=== PATIENT | female | born 2000 | race Two or more races ===

== ENCOUNTER 2021-05-08 17:09 | Inpatient (IN) ==
--- NOTE | 2021-05-08 17:27 | Emergency Department Note ---
Impression & Plan Depression with suicidal ideation, Hypokalemia, Headache ED Provider Note NAME: REGINA CLEVLEAND AGE: 20 SEX: F : 2000 ARRIVES VIA: [employer] INFORMANT: Patient, ED PROVIDER(S): Enrique Bryant MD Chief Complaint: Mental wellness concern HPI: Patient does present due to concern for mental wellness with thoughts of active SI with plan to put a bag over her head to suffocate herself or potentially disturb her self by not eating. Patient is a [employer] student but states that she feels behind even though she just recently started the semester. The patient does have a prior history of trying to put a bag over her head to harm herself last June. Patient states that her sleep sometimes is too much or too little. Her appetite has been poor. Patient has any access to guns or weapons. Patient has any HI or AVH. Patient is vaccinated for COVID-19 denies any alcohol, tobacco, or drug use. The patient did follow-up with a therapist in [place] locally approximately 3 times and was recommended for additional follow-up but this became too expensive and thus the patient did not continue any treatment. The patient does not take any medications. ROS: See HPI for pertinent positives and negatives. A total of 10 systems were reviewed and otherwise negative. Past medical history: See below Surgical history: See below Social history: See below Physical Exam: GENERAL: NAD, wearing a mask, non-toxic. EYE EXAM: Normal conjunctiva. PERRL, no anisocoria and EOM's grossly intact w/o pain. NECK: Supple, no nuchal rigidity, no adenopathy, non-tender. No signs of meningismus. LUNGS: Clear to auscultation. Normal chest wall mechanics. HEART: NSR, no MRG. ABDOMEN: Abdomen soft, non-tender, normo-active bowel sounds, no masses, no rebound or guarding. BACK: No CVA TTP. SKIN: No rashes and no bruising. UPPER EXTREMITIES: Upper extremities are grossly normal. LOWER EXTREMITIES: Grossly normal, no edema. NEURO EXAM: A&O x3, cranial nerves II-XII grossly intact, normal speech, moves all 4 extremities on command w/o issue. Psych: Positive SI, negative HI or AVH. Differential diagnoses: Mood disorder, infection, hypoglycemia, electrolyte abnormalities, cardiac sources, intracerebral event, toxicologic, trauma, neurologic, as well as other pathologies. Course: Patient was seen and evaluated the bedside. Full history physical exam was performed. MDM: Patient was seen due to concern for mental illness. Blood work was obtained and the patient was deemed medically cleared seen and evaluated by the psych heel caser. Patient was admitted as a voluntary 2 0 1-3 S. The patient did receive some Tylenol for headache. The patient was not meningitic or encephalopathic. Past Med/Surg History Medical History (Updated 05/08/21 @ 21:59 by Enrique Bryant MD) Depression Suicidal ideation Surgical History (Updated 05/08/21 @ 18:06 by Enrique Bryant MD) No pertinent past surgical history Social History (Updated 05/08/21 @ 18:06 by Enrique Bryant MD) Smoking Status: Never smoker Hx Alcohol Use: No Hx Substance Use: No current occupational status: student current occupation: [employer] student from [place] Feels Safe at Home: Yes Immunizations: Vaccinated for COVID-19 Allergies Allergies Allergy/AdvReac Type Severity Reaction Status Date / Time No Known Allergies Allergy Unverified 05/08/21 19:17 Home Meds Home Medications Medication Instructions Recorded Confirmed No Known Home Medications 05/08/21 05/08/21 Results & Data (ED) Vital Signs Vital Signs - 24 hr 05/08/21 17:10 05/08/21 19:28 Temperature 37.0 C Temperature Source Oral Pulse Rate 100 H Pulse Rate [Right Finger] 70 Pulse Rhythm Regular Pulse Rhythm [Right Finger] Regular Pulse Strength [Right Finger] Normal Respiratory Rate 20 18 Respiratory Effort / Characteristics Non-Labored Respiratory Depth Normal Respiratory Pattern Regular Blood Pressure 98/62 L Blood Pressure [Left Arm] 121/80 Blood Pressure Mean 74 Blood Pressure Mean [Left Arm] 93 Blood Pressure Position [Left Arm] Sitting Pulse Oximetry 99 99 Oxygen Delivery Method Room Air Sepsis Recent Fever Within 48 Hours No Sepsis New/Unexplained Change in Mental Status No Sepsis Action Taken by Nursing No Action Required Home Medications Current Medication List: was personally reviewed by me Laboratory Data Attestation: I reviewed the patient's lab results. Result diagrams: 05/08/21 17:44 05/08/21 17:44 Lab Results 05/08/21 05/08/21 05/08/21 Range/Units 17:44 17:44 17:44 WBC 8.33 (4.8-10.8) K/uL RBC 4.41 (4.2-5.4) M/uL Hgb 12.8 (12.0-16.0) g/dL Hct 39.0 (37-47) % MCV 88.4 (80-100) fL MCH 29.0 (25-34) pg MCHC 32.8 (32-36) g/dL RDW Std Deviation 44.0 (36.4-46.3) fL RDW Coeff of Tereza 13.5 (11.5-14.5) % Plt Count 326 (130-400) K/uL MPV 10.3 (7.4-10.4) fL Immature Gran % (Auto) 0.2 % Neut % (Auto) 68.7 % Lymph % (Auto) 24.7 % [place] % (Auto) 4.2 % Eos % (Auto) 1.7 % Baso % (Auto) 0.5 % Neut # (Auto) 5.72 (1.4-6.5) K/uL Lymph # (Auto) 2.06 (1.2-3.4) K/uL [place] # (Auto) 0.35 (0.11-0.59) K/uL Eos # (Auto) 0.14 (0-0.5) K/uL Baso # (Auto) 0.04 (0-0.2) K/uL Immature Gran # (Auto) 0.02 (0.00-0.02) K/uL Sodium 139 (136-145) mmol/L Potassium 3.4 L (3.5-5.1) mmol/L Chloride 106 (98-107) mmol/L Carbon Dioxide 26 (21-32) mmol/L Anion Gap 7 (3-11) BUN 9 (6-23) mg/dl Creatinine 0.69 (0.6-1.2) mg/dl Est Cr Clr Drug Dosing Not Reportable Est GFR ( Amer) 145.2 ml/min Est GFR (Non-Af Amer) 125.3 ml/min BUN/Creatinine Ratio 13.0 (10-20) Glucose 93 (70-99(Fasting)) mg/dl Calcium 9.8 (8.5-10.1) mg/dl Total Bilirubin 0.4 (0.2-1.0) mg/dl AST 14 (13-39) U/L ALT 13 (7-52) U/L Alkaline Phosphatase 55 (34-104) U/L Total Protein 7.4 (6.0-8.3) gm/dl Albumin 4.6 (3.4-5.0) gm/dl Globulin 2.8 (2.5-4.0) gm/dl Albumin/Globulin Ratio 1.6 (0.9-2) TSH 1.655 (0.300-4.500) uIu/ml Urine Color Urine Appearance (Clear) Urine pH (4.5-7.5) Ur Specific [place] (1.000-1.030) Urine Protein (Negative) Urine Glucose (UA) (Negative) Urine Ketones (Negative) Urine Blood (Negative) Urine Nitrite (Negative) Urine Bilirubin (Negative) Urine Urobilinogen (Negative) Ur Leukocyte Esterase (Negative) Urine WBC (Auto) (0-5) /hpf Urine RBC (Auto) (0-4) /hpf U Hyaline Cast (Auto) (0-5) /lpf U Epithel Cells (Auto) (0-5) /lpf Urine Bacteria (Auto) (Negative) Urine Test (Negative) Salicylates (3.0-30) mg/dl Urine Opiates Screen (Neg) Ur Methadone, Qual (Neg) Acetaminophen (10-30) ug/ml Urine Barbiturates (Neg) Ur Phencyclidine (PCP) (Neg) U Amphetamin/Meth Scrn (Neg) MDMA (Ecstasy) Screen (Neg) U Benzodiazepines Scrn (Neg) Ur Cocaine Metabolite (Neg) U Marijuana (THC) Screen (Neg) Ethyl Alcohol mg/dL (<10.0) mg/dl SARS-CoV-2, RNA, NAAT (NEGATIVE) 05/08/21 05/08/21 05/08/21 Range/Units 17:44 17:44 19:00 WBC (4.8-10.8) K/uL RBC (4.2-5.4) M/uL Hgb (12.0-16.0) g/dL Hct (37-47) % MCV (80-100) fL MCH (25-34) pg MCHC (32-36) g/dL RDW Std Deviation (36.4-46.3) fL RDW Coeff of Tereza (11.5-14.5) % Plt Count (130-400) K/uL MPV (7.4-10.4) fL Immature Gran % (Auto) % Neut % (Auto) % Lymph % (Auto) % [place] % (Auto) % Eos % (Auto) % Baso % (Auto) % Neut # (Auto) (1.4-6.5) K/uL Lymph # (Auto) (1.2-3.4) K/uL [place] # (Auto) (0.11-0.59) K/uL Eos # (Auto) (0-0.5) K/uL Baso # (Auto) (0-0.2) K/uL Immature Gran # (Auto) (0.00-0.02) K/uL Sodium (136-145) mmol/L Potassium (3.5-5.1) mmol/L Chloride (98-107) mmol/L Carbon Dioxide (21-32) mmol/L Anion Gap (3-11) BUN (6-23) mg/dl Creatinine (0.6-1.2) mg/dl Est Cr Clr Drug Dosing Est GFR ( Amer) ml/min Est GFR (Non-Af Amer) ml/min BUN/Creatinine Ratio (10-20) Glucose (70-99(Fasting)) mg/dl Calcium (8.5-10.1) mg/dl Total Bilirubin (0.2-1.0) mg/dl AST (13-39) U/L ALT (7-52) U/L Alkaline Phosphatase (34-104) U/L Total Protein (6.0-8.3) gm/dl Albumin (3.4-5.0) gm/dl Globulin (2.5-4.0) gm/dl Albumin/Globulin Ratio (0.9-2) TSH (0.300-4.500) uIu/ml Urine Color Yellow Urine Appearance Clear (Clear) Urine pH 6.0 (4.5-7.5) Ur Specific [place] 1.006 (1.000-1.030) Urine Protein Negative (Negative) Urine Glucose (UA) Negative (Negative) Urine Ketones Negative (Negative) Urine Blood 1+ H (Negative) Urine Nitrite Negative (Negative) Urine Bilirubin Negative (Negative) Urine Urobilinogen Negative (Negative) Ur Leukocyte Esterase Negative (Negative) Urine WBC (Auto) 1-5 (0-5) /hpf Urine RBC (Auto) 0-4 (0-4) /hpf U Hyaline Cast (Auto) 0 (0-5) /lpf U Epithel Cells (Auto) 20-30 H (0-5) /lpf Urine Bacteria (Auto) Negative (Negative) Urine Test (Negative) Salicylates < 3.0 L (3.0-30) mg/dl Urine Opiates Screen (Neg) Ur Methadone, Qual (Neg) Acetaminophen < 3 L (10-30) ug/ml Urine Barbiturates (Neg) Ur Phencyclidine (PCP) (Neg) U Amphetamin/Meth Scrn (Neg) MDMA (Ecstasy) Screen (Neg) U Benzodiazepines Scrn (Neg) Ur Cocaine Metabolite (Neg) U Marijuana (THC) Screen (Neg) Ethyl Alcohol mg/dL < 10.0 (<10.0) mg/dl SARS-CoV-2, RNA, NAAT (NEGATIVE) 05/08/21 05/08/21 05/08/21 Range/Units 19:00 19:00 19:25 WBC (4.8-10.8) K/uL RBC (4.2-5.4) M/uL Hgb (12.0-16.0) g/dL Hct (37-47) % MCV (80-100) fL MCH (25-34) pg MCHC (32-36) g/dL RDW Std Deviation (36.4-46.3) fL RDW Coeff of Tereza (11.5-14.5) % Plt Count (130-400) K/uL MPV (7.4-10.4) fL Immature Gran % (Auto) % Neut % (Auto) % Lymph % (Auto) % [place] % (Auto) % Eos % (Auto) % Baso % (Auto) % Neut # (Auto) (1.4-6.5) K/uL Lymph # (Auto) (1.2-3.4) K/uL [place] # (Auto) (0.11-0.59) K/uL Eos # (Auto) (0-0.5) K/uL Baso # (Auto) (0-0.2) K/uL Immature Gran # (Auto) (0.00-0.02) K/uL Sodium (136-145) mmol/L Potassium (3.5-5.1) mmol/L Chloride (98-107) mmol/L Carbon Dioxide (21-32) mmol/L Anion Gap (3-11) BUN (6-23) mg/dl Creatinine (0.6-1.2) mg/dl Est Cr Clr Drug Dosing Est GFR ( Amer) ml/min Est GFR (Non-Af Amer) ml/min BUN/Creatinine Ratio (10-20) Glucose (70-99(Fasting)) mg/dl Calcium (8.5-10.1) mg/dl Total Bilirubin (0.2-1.0) mg/dl AST (13-39) U/L ALT (7-52) U/L Alkaline Phosphatase (34-104) U/L Total Protein (6.0-8.3) gm/dl Albumin (3.4-5.0) gm/dl Globulin (2.5-4.0) gm/dl Albumin/Globulin Ratio (0.9-2) TSH (0.300-4.500) uIu/ml Urine Color Urine Appearance (Clear) Urine pH (4.5-7.5) Ur Specific [place] (1.000-1.030) Urine Protein (Negative) Urine Glucose (UA) (Negative) Urine Ketones (Negative) Urine Blood (Negative) Urine Nitrite (Negative) Urine Bilirubin (Negative) Urine Urobilinogen (Negative) Ur Leukocyte Esterase (Negative) Urine WBC (Auto) (0-5) /hpf Urine RBC (Auto) (0-4) /hpf U Hyaline Cast (Auto) (0-5) /lpf U Epithel Cells (Auto) (0-5) /lpf Urine Bacteria (Auto) (Negative) Urine Test Negative (Negative) Salicylates (3.0-30) mg/dl Urine Opiates Screen Neg (Neg) Ur Methadone, Qual Neg (Neg) Acetaminophen (10-30) ug/ml Urine Barbiturates Neg (Neg) Ur Phencyclidine (PCP) Neg (Neg) U Amphetamin/Meth Scrn Neg (Neg) MDMA (Ecstasy) Screen Neg (Neg) U Benzodiazepines Scrn Neg (Neg) Ur Cocaine Metabolite Neg (Neg) U Marijuana (THC) Screen Neg (Neg) Ethyl Alcohol mg/dL (<10.0) mg/dl SARS-CoV-2, RNA, NAAT NEGATIVE (NEGATIVE) Administered Medications Discontinued Medications Acetaminophen (Acetaminophen 500 Mg Tab) 1,000 mg PO NOW STA Stop: 05/08/21 20:12 Last Admin: 05/08/21 20:23 Dose: 1,000 mg Documented by: [id number] Discharge Plan Visit Data Chief Complaint: Mental Health Evaluation Stated Complaint: [facility] ED Provider: Enrique Bryant Discharge Problem: Depression with suicidal ideation, Hypokalemia, Headache Patient Disposition: Admitted As Inpatient Discharge Instructions Interventions: ED Discharge Assessment Last Done: 05/08/21 21:29 Discharge Problem: Headache Qualifiers: Headache type: unspecified Headache chronicity pattern: acute headache Intractability: not intractable Qualified Code(s): R51.9 - Headache, unspecified
[2021-05-08 18:27] LABS: Basophils # (auto) 0.04 K/uL (0-0.2); Basophils % (auto) 0.5 %; Eosinophils # (auto) 0.14 K/uL (0-0.5); Eosinophils % (auto) 1.7 %; Hemoglobin 12.8 g/dL (12.0-16.0); Immature Granulocytes # (auto) 0.02 K/uL (0.00-0.02); Immature Granulocytes % (auto) 0.2 %; Lymphocytes # (auto) 2.06 K/uL (1.2-3.4); Lymphocytes % (auto) 24.7 %; Mean Corpuscular Hgb Conc 32.8 g/dL (32-36); Mean Corpuscular Volume 88.4 fL (80-100); Mean Platelet Volume 10.3 fL (7.4-10.4); Monocytes # (auto) 0.35 K/uL (0.11-0.59); Monocytes % (auto) 4.2 %; Neutrophils # (auto) 5.72 K/uL (1.4-6.5); Neutrophils % (auto) 68.7 %; Platelet Count 326 K/uL (130-400); RDW Coefficient of Variation 13.5 % (11.5-14.5); Red Blood Count 4.41 M/uL (4.2-5.4); White Blood Count 8.33 K/uL (4.8-10.8)
[2021-05-08 18:43] LABS: Alanine Aminotransferase 13 U/L (7-52); Albumin Globulin Ratio 1.6 (0.9-2); Albumin Level 4.6 gm/dl (3.4-5.0); Alkaline Phosphatase 55 U/L (34-104); Anion Gap 7 (3-11); Aspartate Aminotransferase 14 U/L (13-39); Bilirubin,Total 0.4 mg/dl (0.2-1.0); Blood Urea Nitrogen 9 mg/dl (6-23); Calcium 9.8 mg/dl (8.5-10.1); Carbon Dioxide 26 mmol/L (21-32); Chloride 106 mmol/L (98-107); Est GFR (African American) 145.2 ml/min; Est GFR (Non-African American) 125.3 ml/min; Globulin 2.8 gm/dl (2.5-4.0); Glucose 93 mg/dl (70-99(Fasting)); Potassium 3.4 mmol/L (3.5-5.1); Sodium 139 mmol/L (136-145); Total Protein 7.4 gm/dl (6.0-8.3)
[2021-05-08 18:44] LABS: Acetaminophen < 3 ug/ml (10-30); Salicylate < 3.0 mg/dl (3.0-30)
[2021-05-08 19:15] LABS: Pregnancy Test, Urine Negative (Negative)
[2021-05-08 19:36] LABS: Appearance Urine Clear (Clear); Bacteria Urine Automated Negative (Negative); Bilirubin Urine Negative (Negative); Blood Urine 1+ (Negative); Cast Urine Automated 0 /lpf (0-5); Color Urine Yellow; Epithelial Cell Urine Auto 20-30 /lpf (0-5); Glucose Urine UA Negative (Negative); Ketones Urine Negative (Negative); Leukocyte Esterase Urine Negative (Negative); Nitrite Urine Negative (Negative); Protein Urine Negative (Negative); RBC Urine Automated 0-4 /hpf (0-4); Specific Gravity Urine 1.006 (1.000-1.030); Urobilinogen Urine Negative (Negative)
[2021-05-08 19:58] LABS: Amphetamines+Metham, Urine Neg (Neg); Barbiturates, Urine Neg (Neg); Benzodiazepine, Urine Neg (Neg); Cocaine, Urine Neg (Neg); MDMA (Ecstacy), Urine Neg (Neg); Methadone, Urine Neg (Neg); Opiate, Urine Neg (Neg); Phencyclidine, Urine Neg (Neg)
[2021-05-08] MEDS ORDERED: ACETAMINOPHEN 500 MG TAB PO STA (20:11)
[2021-05-08] MEDS ORDERED: ACETAMINOPHEN 325 MG TAB PO PRN (20:59)
[2021-05-08] MEDS ORDERED: SODIUM CHLORIDE 0.65% NA SOLN 45 ML (OCEAN) PRN (20:59)
[2021-05-08] MEDS ORDERED: ALUMINUM/MAGNESIUM SUSP 30 ML UDC PO PRN (20:59)
[2021-05-08] MEDS ORDERED: hydrOXYzine HCl 25 MG TAB PO PRN ×2 (20:59)
[2021-05-08] MEDS ORDERED: MAGNESIUM HYDROXIDE SUSP 30 ML UDC PO PRN (20:59)
[2021-05-08] MEDS ORDERED: BISMUTH SUBSALICYLATE LIQD 236 ML PO PRN (20:59)
[2021-05-08] MEDS ORDERED: ONDANSETRON 4 MG OD TAB PO PRN (22:50)
[2021-05-09] MEDS: ESCITALOPRAM OXALATE 10 MG TAB PO SCH (10:29)
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
[2021-05-10] MEDS: ESCITALOPRAM OXALATE 10 MG TAB PO SCH (08:48)
--- NOTE | 2021-05-10 11:31 | Psychiatric Progress Note ---
Date of Service May 10, 2021 Impression / Recommendations Impression Regina is a 20 yo female with 2 prior suicide attempts presents with worsening mood during the winter and multiple vegetative symptoms of depression as well as recurrent SI with plan. She has a good relationship with her roommate but otherwise has very little support. 05/10/20: improving, some medication side effects (1) Depression with suicidal ideation: 05/10/21: continue current meds and treatment plan 05/09/21: The patient was admitted to the [facility] ([facility]) on q15 min checks (behavioral with suicide precautions) for safety. The patient will participate in group, recreational, and milieu therapies and will be offered additional individual and family sessions as clinically appropriate. Risks/benefits/alternatives reviewed re: antidepressants for the treatment of depression and/or anxiety. Discussion included but was not limited to FDA warnings re: suicidality in adolescents and young adults. The patient agreed to a trial of Lexapro. Inventory Assets Strengths: intelligent, self-aware Needs: increase support system, cope without self harm. Risk Factors Assessment Male: No : No Do You Have Access To A Gun?: No Substance Use Disorders: No Previous Attempt: Yes Protective Factors Assessment Employed: No Stable Relationships: Yes Supportive Family: No Interval History Identifying Information REGINA CLEVELAND is a 20-year-old [facility] F from [facility], has a history of prior suicide attempt , and was admitted on 05/08/21 20:59 on a 201 voluntary commitment for SI. Chief Complaint "a little foggy today". Review of Systems Sleep Information Total Hours of Sleep: 6 Sleep Comments: pt on q-15 minute checks Meal Information Percent Meal Consumed - Breakfast: 25 Percent Meal Consumed - Lunch: 50 Percent Meal Consumed - Dinner: 75 Nutrition Comment: see note Subjective Subjective Patient was seen & assessed and interval progress reviewed with nursing and social work. The patient reports feeling a little tired this am, minor stomach upset which may be related to medication. She does not feel severe enough that she wants to shift to bedtime at this time. Physical Exam Psychiatric Orientation: alert and oriented x 3 Apperance: appropriately dressed and appropriately groomed Eye Contact: good eye contact Motor Behavior: no abnormal motor movements Speech: normal rate/rhythm/volume of speech Affect: + depressed affect Mood: + depressed mood Thought Process: goal directed thought process Thought Content: reality based without delusions Suicidal Thoughts: denies suicidal thoughts and denies suicidal plan Homicidal Thoughts: denies homicidal thoughts Hallucinations: no auditory hallucinations and no visual hallucinations Cognition: attention grossly intact and language grossly intact Estimated Intelligence: consistent with education level Vital Signs (Past 24 Hours) Last Vital Signs Temp 36.5 C 05/10/21 06:34 Pulse 78 05/10/21 06:36 Resp 16 05/10/21 06:34 BP 97/61 L 05/10/21 06:36 Pulse Ox 99 05/08/21 21:43 Results & Data ([facility]) Current Inpatient Medications Current Inpatient Medications: Current Inpatient Medications Acetaminophen (Acetaminophen 325 Mg Tab) 650 mg PO Q4H PRN PRN Reason: Headache or Minor Fever Stop: 06/07/21 20:58 Al Hydrox/Mg Hydrox/Simethicone (Aluminum/Magnesium Susp 30 Ml Udc) 30 ml PO Q4H PRN PRN Reason: GI Upset Stop: 06/07/21 20:58 Bismuth Subsalicylate (Bismuth Subsalicylate Liqd 236 Ml) 15 ml PO PRN PRN PRN Reason: Loose Stool Stop: 06/07/21 20:58 Escitalopram Oxalate (Escitalopram Oxalate 10 Mg Tab) 5 mg PO QAM ALLEN Stop: 06/08/21 09:44 Last Admin: 05/10/21 08:48 Dose: 5 mg Documented by: Hydroxyzine HCl (Hydroxyzine Hcl 25 Mg Tab) 50 mg PO HSZ PRN PRN Reason: Insomnia Stop: 06/07/21 20:58 Hydroxyzine HCl (Hydroxyzine Hcl 25 Mg Tab) 25 mg PO Q4H PRN PRN Reason: Anxiety Stop: 06/07/21 20:58 Magnesium Hydroxide (Magnesium Hydroxide Susp 30 Ml Udc) 30 ml PO DAILY PRN PRN Reason: Constipation Stop: 06/07/21 20:58 Ondansetron HCl (Ondansetron 4 Mg Od Tab) 4 mg PO Q6H PRN PRN Reason: Nausea Stop: 06/07/21 22:49 Last Admin: 05/08/21 23:10 Dose: 4 mg Documented by: Sodium Chloride (Sodium Chloride 0.65% Na Soln 45 Ml ([place])) 1 - 2 sprays NA PRN PRN PRN Reason: Nasal Dryness/Congestion Stop: 06/07/21 20:58 Mental Health & Subst Abuse Tx Therapist Name of Therapist: None Body Corporate Manager Name of Body Corporate Manager: None Post Discharge Appointments Primary Care Physician Name Of Family Doctor: VLADIMIR
[2021-05-11] MEDS: ESCITALOPRAM OXALATE 10 MG TAB PO SCH (08:37)
--- NOTE | 2021-05-11 09:46 | Psychiatric Progress Note ---
Date of Service May 11, 2021 Impression / Recommendations Impression Regina is a 20 yo female with 2 prior suicide attempts presents with worsening mood during the winter and multiple vegetative symptoms of depression as well as recurrent SI with plan. She has a good relationship with her roommate but otherwise has very little support. 05/11/21: improving (1) Depression with suicidal ideation: 05/11/21: safety and aftercare planning 05/10/21: continue current meds and treatment plan 05/09/21: The patient was admitted to the [facility] ([facility] mental health unit) on q15 min checks (behavioral with suicide precautions) for safety. The patient will participate in group, recreational, and milieu therapies and will be offered additional individual and family sessions as clinically appropriate. Risks/benefits/alternatives reviewed re: antidepressants for the treatment of depression and/or anxiety. Discussion included but was not limited to FDA warnings re: suicidality in adolescents and young adults. The patient agreed to a trial of Lexapro. Inventory Assets Strengths: intelligent, self-aware Needs: increase support system, cope without self harm. Risk Factors Assessment Male: No : No Do You Have Access To A Gun?: No Substance Use Disorders: No Previous Attempt: Yes Protective Factors Assessment Employed: No Stable Relationships: Yes Supportive Family: No Interval History Identifying Information REGINA CLEVELAND is a 20-year-old [facility] F from [facility], has a history of prior suicide attempt, and was admitted on 05/08/21 20:59 on a 201 voluntary commitment for SI. Chief Complaint "I don't feel foggy today, I did have some intrussive thoughts overnight" Review of Systems Sleep Information Total Hours of Sleep: 6.5 Sleep Comments: pt on q-15 minute checks Meal Information Percent Meal Consumed - Breakfast: 20 Percent Meal Consumed - Lunch: 50 Percent Meal Consumed - Dinner: 100 Nutrition Comment: see note Subjective Subjective Patient was seen & assessed and interval progress reviewed with treatment team. Remains cooperative with unit routine and participates well in group, rates mood as improving, no physical complaints. Denies she is suicidal but woke up briefly overnight with "what if" I or jumped type thoughts. She was able to redirect them. Physical Exam Psychiatric Orientation: alert and oriented x 3 Apperance: appropriately dressed and appropriately groomed Eye Contact: good eye contact Motor Behavior: no abnormal motor movements Speech: normal rate/rhythm/volume of speech Affect: + depressed affect Mood: + depressed mood Thought Process: goal directed thought process Thought Content: reality based without delusions Suicidal Thoughts: denies suicidal thoughts, denies suicidal plan and denies suicidal intent Homicidal Thoughts: denies homicidal thoughts Hallucinations: no auditory hallucinations and no visual hallucinations Cognition: attention grossly intact and language grossly intact Vital Signs (Past 24 Hours) Last Vital Signs Temp 36.9 C 05/11/21 06:31 Pulse 75 05/11/21 06:32 Resp 16 05/11/21 06:31 BP 95/64 L 05/11/21 06:32 Pulse Ox 99 05/08/21 21:43 Results & Data ([facility]) Current Inpatient Medications Current Inpatient Medications: Current Inpatient Medications Acetaminophen (Acetaminophen 325 Mg Tab) 650 mg PO Q4H PRN PRN Reason: Headache or Minor Fever Stop: 06/07/21 20:58 Al Hydrox/Mg Hydrox/Simethicone (Aluminum/Magnesium Susp 30 Ml Udc) 30 ml PO Q4H PRN PRN Reason: GI Upset Stop: 06/07/21 20:58 Bismuth Subsalicylate (Bismuth Subsalicylate Liqd 236 Ml) 15 ml PO PRN PRN PRN Reason: Loose Stool Stop: 06/07/21 20:58 Escitalopram Oxalate (Escitalopram Oxalate 10 Mg Tab) 5 mg PO QAM ALLEN Stop: 06/08/21 09:44 Last Admin: 05/11/21 08:37 Dose: 5 mg Documented by: Hydroxyzine HCl (Hydroxyzine Hcl 25 Mg Tab) 50 mg PO HSZ PRN PRN Reason: Insomnia Stop: 06/07/21 20:58 Hydroxyzine HCl (Hydroxyzine Hcl 25 Mg Tab) 25 mg PO Q4H PRN PRN Reason: Anxiety Stop: 06/07/21 20:58 Magnesium Hydroxide (Magnesium Hydroxide Susp 30 Ml Udc) 30 ml PO DAILY PRN PRN Reason: Constipation Stop: 06/07/21 20:58 Ondansetron HCl (Ondansetron 4 Mg Od Tab) 4 mg PO Q6H PRN PRN Reason: Nausea Stop: 06/07/21 22:49 Last Admin: 05/08/21 23:10 Dose: 4 mg Documented by: Sodium Chloride (Sodium Chloride 0.65% Na Soln 45 Ml ([place])) 1 - 2 sprays NA PRN PRN PRN Reason: Nasal Dryness/Congestion Stop: 06/07/21 20:58 Mental Health & Subst Abuse Tx Therapist Name of Therapist: None Sound Technician Supervisor Name of Sound Technician Supervisor: None Post Discharge Appointments Primary Care Physician Name Of Family Doctor: [facility]
[2021-05-12] MEDS: ESCITALOPRAM OXALATE 10 MG TAB PO SCH (08:29)
--- NOTE | 2021-05-12 10:13 | Discharge Summary ---
Date of Service May 12, 2021 History of Present Illness The patient notes a long history of depression, generally "hid" from grandparents who raised her and aunts as "culturally they just don't get it." Negative self concept includes not feeling comfortable with her weight but denies restricting or other ED symptoms. She did vomit last pm after small amount of food in the ED but denies inentional and denies N now. States that she contacted [facility] as feeling rather guilty after a friend's (did not e laborate) though she clarified nothing was "my fault". She feels that her mood (energia, amotivation) is worse over the winter and recalls sleeping much of break. She never received treatment for her prior suicide attempts which occured 6 months-1 year ago (now states 1 year as was break 2019). She took an overdose of antibiotics with an attempt to harm herself as well as a prior attempt of suffocation by plastic bag. She denied periods of persistently elevated or irritable mood but will have periods of 1 hr-2 days where she talks more and doesn't need much sleep and will even clean her room in the middle of the night. Her friends joked that she was on "crack". She denies using substances but will "get like that if drinks energy drinks". She reports that her classes are harder this semester and she is falling behind. She is still thinking about what she wants to study as didn't like criminology. Physical Exam Psychiatric See admission H&P and DOD assessment. Vital Signs (Past 24 Hours) Last Vital Signs Temp 36.5 C 05/12/21 06:41 Pulse 74 05/12/21 06:41 Resp 16 05/12/21 06:41 BP 106/66 05/12/21 06:41 Pulse Ox 99 05/08/21 21:43 Principal Diagnosis major depressive disorder Psychiatric Data See daily stay summary. In short, safety was maintained and the patient was cooperative with care. Medication changes included a trial of Lexapro and they tolerated this well. She declined family involvement in her stay but did have a support person session with her roommate which went well. A safety plan was completed prior to discharge. Day of Discharge Assessment Today the patient voices readiness for discharge. They note improvement in mood and deny thoughts to harm self or others. Thoughts remain organized and they are improved from admission. There is no evidence of psychosis. They agree to take mediations as prescribed and keep follow-up appointments. They are stable for discharge to outpatient level of care. She will have follow up for medication management and likely titration of Lexapro at [facility] and has been referred to Nataliia Pool for therapy, confirmation of an appointment is anticipated prior to discharge. Transition of Care Transition Of Care Record: was reviewed with the patient Advance Directives Advance Directives Information Provided: Yes Advance Directives: No Mental Health Advance Directive: No Advance Directives on File: No Living Will: No Power of Dyeing Machine Feeder: No Advance Directives Reason:: Declines as Mental Health Visit. Risk Factors Assessment Male: No : No Do You Have Access To A Gun?: No Substance Use Disorders: No Previous Attempt: Yes Protective Factors Assessment Employed: No Stable Relationships: Yes Supportive Family: No Tobacco Cessation at Discharge Tobacco Cessation Medication Prescribed at Discharge: Not Applicable/Non-Smoker Total Time Total Time Spent: Greater Than 30 Minutes Total Time Includes: Examination of the patient, Discharge Planning and Medication Reconciliation Discharge Data Lab Results 05/08/21 05/08/21 05/08/21 17:44 17:44 17:44 WBC 8.33 RBC 4.41 Hgb 12.8 Hct 39.0 MCV 88.4 MCH 29.0 MCHC 32.8 RDW Std Deviation 44.0 RDW Coeff of Tereza 13.5 Plt Count 326 MPV 10.3 Immature Gran % (Auto) 0.2 Neut % (Auto) 68.7 Lymph % (Auto) 24.7 [place] % (Auto) 4.2 Eos % (Auto) 1.7 Baso % (Auto) 0.5 Neut # (Auto) 5.72 Lymph # (Auto) 2.06 [place] # (Auto) 0.35 Eos # (Auto) 0.14 Baso # (Auto) 0.04 Immature Gran # (Auto) 0.02 Sodium 139 Potassium 3.4 L Chloride 106 Carbon Dioxide 26 Anion Gap 7 BUN 9 Creatinine 0.69 Est Cr Clr Drug Dosing Not Reportable Est GFR ( Amer) 145.2 Est GFR (Non-Af Amer) 125.3 BUN/Creatinine Ratio 13.0 Glucose 93 Calcium 9.8 Total Bilirubin 0.4 AST 14 ALT 13 Alkaline Phosphatase 55 Total Protein 7.4 Albumin 4.6 Globulin 2.8 Albumin/Globulin Ratio 1.6 TSH 1.655 Urine Color Urine Appearance Urine pH Ur Specific [place] Urine Protein Urine Glucose (UA) Urine Ketones Urine Blood Urine Nitrite Urine Bilirubin Urine Urobilinogen Ur Leukocyte Esterase Urine WBC (Auto) Urine RBC (Auto) U Hyaline Cast (Auto) U Epithel Cells (Auto) Urine Bacteria (Auto) Urine Test Salicylates Urine Opiates Screen Ur Methadone, Qual Acetaminophen Urine Barbiturates Ur Phencyclidine (PCP) U Amphetamin/Meth Scrn MDMA (Ecstasy) Screen U Benzodiazepines Scrn Ur Cocaine Metabolite U Marijuana (THC) Screen Ethyl Alcohol mg/dL SARS-CoV-2, RNA, NAAT 05/08/21 05/08/21 05/08/21 17:44 17:44 19:00 WBC RBC Hgb Hct MCV MCH MCHC RDW Std Deviation RDW Coeff of Tereza Plt Count MPV Immature Gran % (Auto) Neut % (Auto) Lymph % (Auto) [place] % (Auto) Eos % (Auto) Baso % (Auto) Neut # (Auto) Lymph # (Auto) [place] # (Auto) Eos # (Auto) Baso # (Auto) Immature Gran # (Auto) Sodium Potassium Chloride Carbon Dioxide Anion Gap BUN Creatinine Est Cr Clr Drug Dosing Est GFR ( Amer) Est GFR (Non-Af Amer) BUN/Creatinine Ratio Glucose Calcium Total Bilirubin AST ALT Alkaline Phosphatase Total Protein Albumin Globulin Albumin/Globulin Ratio TSH Urine Color Yellow Urine Appearance Clear Urine pH 6.0 Ur Specific [place] 1.006 Urine Protein Negative Urine Glucose (UA) Negative Urine Ketones Negative Urine Blood 1+ H Urine Nitrite Negative Urine Bilirubin Negative Urine Urobilinogen Negative Ur Leukocyte Esterase Negative Urine WBC (Auto) 1-5 Urine RBC (Auto) 0-4 U Hyaline Cast (Auto) 0 U Epithel Cells (Auto) 20-30 H Urine Bacteria (Auto) Negative Urine Test Salicylates < 3.0 L Urine Opiates Screen Ur Methadone, Qual Acetaminophen < 3 L Urine Barbiturates Ur Phencyclidine (PCP) U Amphetamin/Meth Scrn MDMA (Ecstasy) Screen U Benzodiazepines Scrn Ur Cocaine Metabolite U Marijuana (THC) Screen Ethyl Alcohol mg/dL < 10.0 SARS-CoV-2, RNA, NAAT 05/08/21 05/08/21 05/08/21 19:00 19:00 19:25 WBC RBC Hgb Hct MCV MCH MCHC RDW Std Deviation RDW Coeff of Tereza Plt Count MPV Immature Gran % (Auto) Neut % (Auto) Lymph % (Auto) [place] % (Auto) Eos % (Auto) Baso % (Auto) Neut # (Auto) Lymph # (Auto) [place] # (Auto) Eos # (Auto) Baso # (Auto) Immature Gran # (Auto) Sodium Potassium Chloride Carbon Dioxide Anion Gap BUN Creatinine Est Cr Clr Drug Dosing Est GFR ( Amer) Est GFR (Non-Af Amer) BUN/Creatinine Ratio Glucose Calcium Total Bilirubin AST ALT Alkaline Phosphatase Total Protein Albumin Globulin Albumin/Globulin Ratio TSH Urine Color Urine Appearance Urine pH Ur Specific [place] Urine Protein Urine Glucose (UA) Urine Ketones Urine Blood Urine Nitrite Urine Bilirubin Urine Urobilinogen Ur Leukocyte Esterase Urine WBC (Auto) Urine RBC (Auto) U Hyaline Cast (Auto) U Epithel Cells (Auto) Urine Bacteria (Auto) Urine Test Negative Salicylates Urine Opiates Screen Neg Ur Methadone, Qual Neg Acetaminophen Urine Barbiturates Neg Ur Phencyclidine (PCP) Neg U Amphetamin/Meth Scrn Neg MDMA (Ecstasy) Screen Neg U Benzodiazepines Scrn Neg Ur Cocaine Metabolite Neg U Marijuana (THC) Screen Neg Ethyl Alcohol mg/dL SARS-CoV-2, RNA, NAAT NEGATIVE Hospital Course (1) Depression with suicidal ideation: 05/11/21: safety and aftercare planning 05/10/21: continue current meds and treatment plan 05/09/21: The patient was admitted to the [facility] ([facility] inpatient mental health unit) on q15 min checks (behavioral with suicide precautions) for safety. The patient will participate in group, recreational, and milieu therapies and will be offered additional individual and family sessions as clinically appropriate. Risks/benefits/alternatives reviewed re: antidepressants for the treatment of depression and/or anxiety. Discussion included but was not limited to FDA warnings re: suicidality in adolescents and young adults. The patient agreed to a trial of Lexapro. Mental Health & Subst Abuse Tx Psychiatrist Name of Psychiatrist: Regina Lundberg (intake) Psychiatrist's Date of Appointment with Psychiatrist: 06/02/21 Time of Appointment with Psychiatrist: 9:45 AM Psychiatric Appointment Comment: [address], [place] [address] Therapist Name of Therapist: None Junior Legal Secretary Name of Junior Legal Secretary: None Post Discharge Appointments Primary Care Physician Name Of Family Doctor: [facility] Primary Care Provider Appointment Comment: Follow up as needed. Smoking Cessation Counseling Tobacco Cessation Medication Prescribed at Discharge: Not Applicable/Non-Smoker Other #1: Name of Aftercare Appointment: [facility] Date of Aftercare Appointment: 05/14/21 Time of Aftercare Appointment: 3:00 PM Aftercare Appointment Comment: [email or web address] Discharge Plan Discharge Items Patient Disposition: Home - Self-Care Reason For Visit: MHID/MDD Discharge Diagnosis: major depressive disorder Activity: Resume your previous activity Non-emergency contact: Primary Care Provider, Psychiatrist and Therapist Call non-emergency contact if: you have any medication questions and your symptoms worsen Follow-up/Referrals: [facility] [Primary Care Provider] - Diet: Regular Addtl Attending Provider Instructions: SPECIAL CARE INSTRUCTIONS: 1. Follow through with your scheduled aftercare appointments. If unable to keep an appointment, please call to reschedule. 2. Take your medication only as prescribed. Medication should not be changed or stopped without the approval of your doctor. In the event of worsening symptoms or concerns about side effects, contact your doctor immediately. 3. Utilize new healthy coping skills, anger management skills, and stress management skills learned during your hospitalization. Journal feelings and process them with a support person. Identify stressors or situations that may result in relapse, deterioration or inappropriate behaviors and develop a plan to deal with those issues. 4. If your coping skills are ineffective and you are in crisis, contact your outpatient providers for direction. If unable to reach your providers, please call the [facility] CRISIS LINE AT , go to the [facility] walk-in center at [address], [address], [place], or go to the closest Emergency Room. 5. Avoid alcohol and un-prescribed drugs. 6. You have been provided with the Mental Health Advance Directives Pamphlet for your review. 7. Your condition is stable for discharge to outpatient level of care, but recovery is an ongoing process. Ifthoughts to harm yourself or others return, follow the safety plan developed during your stay. Planning for a safe return home includes securing weapons. Our treatment team recommends weaponsbe removed from the home until your outpatient provider reassesses your progress. In rare cases where the items themselvescannot be removed, guns and ammunitionshould be secured separatelyand keys stored by a reliable personoutside of the home. If you were admitted on an involuntary commitment, the police or other legal authorities may be involved in this process. AFTERCARE APPOINTMENTS: * Please call your insurance company prior to your scheduled appointment to confirm your aftercare providers are covered. Take your insurance information to your appointments. WHO TO CALL AND WHEN: Medical Emergencies: For questions or emergencies related to your hospital stay, please contact the Inpatient Behavioral Health Unit at [phone]. A wireless construction manager is on-call 01/11 for the Behavioral Health Unit for emergencies At any time you feel your situation is an emergency, you may also call 911 immediately. Pending Studies at Discharge: No Stand-Alone Forms: My [facility] [employer], Smoking Cessation Medications and DC Order Prescriptions: New escitalopram oxalate 5 mg tablet 5 mg PO QAM 30 Days Qty: 30 RF: 0 Discharge Orders: Discharge Order (Routine); Ordered 05/12/21 Ordered By: Marita Gilbert Admission Data Admit Date/Time: 05/08/21 20:59 Attending Provider: Marita Gilbert Admit Provider: Marita Gilbert Primary Care Provider: [facility] Other Interventions: PSY Interdisciplinary Discharge Planning Last Done: 05/11/21 15:53 Coding Level of Care Code 71590 D/C day mgmt > 30 min Diagnoses Depression with suicidal ideation F32.A; R45.851
== END 2021-05-12 15:24 | disposition home or self-care (01) | DRG 881 ==
LOC: ED 17:09 → 3S 20:59
DX: R51.9 Headache, unspecified; R45.851 Suicidal ideations; F32.9 Major depressive disorder, single episode, unspecified; E87.6 Hypokalemia